=== PATIENT | female | born 1970 | race Caucasian/White ===

== ENCOUNTER 2021-01-09 15:22 | Emergency (ER) | payer OTHER ==
[2021-01-09 16:29] LABS: BASOPHIL 0.5 % (0-2); EOSINOPHIL 2.8 % (0-5); HCT 40.4 % (37.0-47.0); HGB 13.5 g/dl (12.5-16.0); LYMPHOCYTE 27.9 % (15-48); MCH 29.5 pg (25.0-31.0); MCHC 33.4 g/dL (32.0-36.0); MCV 88.4 fL (78.0-100.0); MONOCYTE 6.5 % (0-12); MPV 10.6 fL (6.0-9.5); NRBC 0; PLT 141 K/uL (150-400); RBC 4.57 M/uL (4.20-5.40); RDW 12.3 % (11.5-14.0); WBC 5.8 K/uL (4.0-10.5)
[2021-01-09 17:00] LABS: ALBUMIN 4.3 g/dL (3.4-5.0); ALKALINE PHOSHATASE 88 U/L (46-116); ALT <6 U/L (14-59); AST 17 U/L (15-37); BILIRUBIN - TOTAL 0.4 mg/dL (0.2-1.0); BUN 15 mg/dL (7-18); BUN/CREAT RATIO (CALC) 20.8 RATIO; CHLORIDE 105 mmol/L (98-107); CO2 (BICARBONATE) 29 mmol/L (21-32); CREATININE 0.72 mg/dL (0.51-0.95); GLOBULIN (CALCULATION) 2.9 g/dL; GLUCOSE 92 mg/dL (74-106); LIPASE 91 U/L (73-393); POTASSIUM 4.1 mmol/L (3.5-5.1); TOTAL PROTEIN 7.2 g/dL (6.4-8.2)
[2021-01-09] MEDS ORDERED: DICYCLOMINE HCL20 MG PO (18:42)
[2021-01-09] MEDS ORDERED: NORCO 5-325 TA1 EACH PO (18:42)
[2021-01-09] MEDS ORDERED: OMEPRAZOLE40 MG PO (18:42)
== END 2021-01-09 22:09 | disposition left against medical advice (07) ==
LOC: FER 15:22
PROVIDERS: Internal Medicine
DX: R10.13 Epigastric pain (principal); I10 Essential (primary) hypertension; Z87.891 Personal history of nicotine dependence; Z88.1 Allergy status to other antibiotic agents; Z88.0 Allergy status to penicillin; Z88.2 Allergy status to sulfonamides; Z53.8 Procedure and treatment not carried out for other reasons
CPT/HCPCS: 36415; 71045; 80053; 83690; 84145; 84484; 85025; 93005; J1170; J2405